=== PATIENT | male | born 1955 | race Caucasian/White ===

== ENCOUNTER 2018-04-16 08:12 | Emergency (ER) | payer MEDICAID, SELFPAY ==
[2018-04-16 08:13] VITALS: BP 158/77; PULSE 58; RESP 16; TEMP 36.6; O2SAT 99; BMI 26.3
--- NOTE | 2018-04-16 08:26 | RAD_ITS ---
STUDY: X-RAY CHEST REASON FOR EXAM: Male, 62 years old. Chest pain, dizziness TECHNIQUE: Single AP portable view of the chest. COMPARISON: None. FINDINGS: Cardiac monitoring leads overlie the chest. The lungs are clear and expanded. There is a vertical linear opacity over the left chest which may be artifact. There is no demonstrated pleural abnormality. Normal size heart. Normal mediastinum and yesi. Normal visualized pulmonary arteries. Normal visualized aortic arch and descending thoracic aorta. Normal visualized thoracic spine. Normal visualized ribs, clavicles, and shoulders. There is no demonstrated abnormality of the visualized soft tissue structures of the upper abdomen. RAD/Chest 1 View (Portable) IMPRESSION: Normal x-ray examination of the chest. Electronically Signed: August Irizarry DO at 9:03 EDT Tel , Service support ,
--- NOTE | 2018-04-16 08:29 | NURSING ---
NO OLD EKGS
--- NOTE | 2018-04-16 08:34 | ED.DCSUM_ITS ---
- ER Visit Summary Date of Service: 04/16/18 Chief Complaint: Chest pain History of Present Illness: The patient is a 62 M with chest pain. The pain started Sunday afternoon after mowing. This was 6 days ago. The pain came on about every 30 minutes. It was over the left side of his chest and it felt sharp. Over the past weekend he had weakness and lightheadedness but no pain. Today he was feeling a little short of breath. He has no history of this. He denies any medical history and takes no medications. Denies any surgeries. Denies any history of heart disease, PE, or aortic disease. Denies fever or infectious symptoms. He has never had any evaluation of his heart including stress test, echo, and catheterization. Is a non-smoker. Physical Examination: Blood pressure 158/77. Otherwise vitals unremarkable. Afebrile. No acute distress. Sitting comfortably. Skin appears normal in color without diaphoresis or pallor. Heart regular rate and rhythm. Lungs clear bilaterally. Extremities nontender. No edema. Pulses 2+ and equal bilaterally. Alert and oriented. Cranial nerves grossly intact. No facial droop. Good strength and sensation grossly. Normal speech. Normal gait. Test Results: EKG shows sinus rhythm at a rate of 61. No sign of acute ischemia or infarct pattern. Chest x-ray and laboratory studies are pending. Emergency Department Course and Treatment: Patient presents with atypical chest pain. It is not classic for ACS, but it is concerning that his symptoms started with exertion. He is 62 years old but overall very healthy and a non- smoker. He is low risk for PE and dissection. There is nothing to suggest infection. He has no history of lung disease. His exam is unremarkable. I did check a basic cardiac workup. I added a d-dimer because of the chest pain with lightheadedness, but otherwise I have low suspicion for dissection. There is nothing to suggest stroke. Chest x-ray and laboratory studies were unremarkable. On reevaluation, the patient is feeling better. No new or worsening symptoms. Patient has a heart score of 2, however his symptoms are concerning. Clinically I felt that he should be admitted for further cardiac testing. Patient declined. He understands that he has not been fully evaluated for chest pain and he would like to follow-up with his doctor for outpatient testing. I advised him to follow-up today. If he has trouble following up or if he has new or worsening symptoms, he should return right away for further evaluation. Patient voiced understanding. Treatment Plan: As above Disposition: Discharge Impression: 1. Chest pain This note was generated with [employer] dictation software. It may contain incorrect words, spelling, and punctuation that were not noted in review of the chart prior to signing ED Disposition - Plan for ED Patient: Disposition: Home or Assisted Living Chief Complaint: Dizziness Instructions: ED Chest Pain Atypical Unkn Cause Referrals: Nimesh England MD [Primary Care Provider] -
[2018-04-16] MEDS: Aspirin 81 MG TAB.CHEW 324 MG PO (08:40)
[2018-04-16 08:45] LABS: Absolute Neutrophil Count 2.9 X10^3/uL (2.0-7.7); Basophil# 0.02 X10^3/uL; Basophil% 0.4 % (0-1); Eosinophil# 0.23 X10^3/uL; Eosinophils% 4.6 % (0-5); Hemoglobin 15.5 g/dl (13.0-16.5); Mean Corp Hgb Conc 35.2 g/gl (32-36); Mean Corpuscular Hgb 30.6 pg (27.0-32.0); Mean Corpuscular Volume 86.8 fL (80-94); Mean Platelet Vol. 8.5 fl (6.2-12.0); Monocyte# 0.45 X10^3/uL; Neutrophil # 2.89 X10^3/uL (2.7-7.7); Neutrophil % 57.8 % (47-70); POSITIVE COUNT NO; POSITIVE DIFFERENTIAL NO; POSITIVE MORPHOLOGY NO; Platelet Count 165 K/mm3 (150-450); RBC Distribution Width CV 12.8 % (11.6-14.6); Red Blood Count 5.07 M/mm3 (4.6-6.2)
[2018-04-16 08:53] LABS: D-Dimer Quantitative (DVT/PE) < 0.27 FEU/ug/m (0.27-0.49)
[2018-04-16 09:01] LABS: Anion Gap 7 (5-15); BUN 18 mg/dL (7-18); BUN/Creat Ratio 16.8 RATIO (10-20); Calcium,Total 8.7 mg/dL (8.5-10.1); Chloride 108 mmol/L (98-107); Creatinine, Serum 1.07 mg/dL (0.70-1.30); EST Glomerular Filtration Rate 74 mL/min (>60); Est Glom Filt Rate - Afr Amer 90 mL/min (>60); Estimated Creatinine Clearance 75.26 ml/min; Glucose 101 mg/dL (74-106); Potassium 3.9 mmol/L (3.5-5.1); Sodium Level 140 mmol/L (136-145)
--- NOTE | 2018-04-16 09:37 | ED.DEP ---
ED Disposition - Plan for ED Patient: Chief Complaint: Dizziness Instructions: ED Chest Pain Atypical Unkn Cause Referrals: Nimesh England MD [Primary Care Provider] -
[2018-04-16 09:39] VITALS: BP 133/89; PULSE 52; RESP 14; O2SAT 96
== END 2018-04-16 09:43 | disposition home or self-care (01) ==
PROVIDERS: Emergency Provider Emergency Medicine; Family Provider Family Medicine; PCP Family Medicine
DX: R07.9 Chest pain, unspecified (principal)
CPT/HCPCS: 71045; 80048; 84484; 85025; 85379; 93005; 99284; A4216

== ENCOUNTER 2019-02-06 19:27 | Emergency (ER) | payer OTHER, SELFPAY ==
[2019-02-06 19:27] VITALS: BP 153/73; PULSE 56; RESP 14; TEMP 36.9; O2SAT 97; BMI 26.6
[2019-02-06] MEDS: predniSONE 20 MG Tablet 60 MG PO (20:47)
--- NOTE | 2019-02-06 20:57 | ED.DCSUM_ITS ---
History of Present Illness Chief Complaint: Neuro S/Sx Informant: Patient Narrative: Right facial droop today after leaving PCP office. States had pain across his right scalp 2 days ago noted a rash this morning. Saw his PCP. Evaluate by 2 doctors there diagnosed with shingles. He is on valacyclovir. Not a diabetic. There is no speech changes or any hemiparesis. No previous similar symptoms. No visual changes. Prior similar symptoms: No Past Medical History - Allergies and Home Meds Allergies/Adverse Reactions: Allergies No Known Allergies Allergy (Verified 02/06/19 19:31) Primary Care Physician: Nimesh England MD [Primary Care Provider] - 5-7 Days Smoking Status: Never smoker Review of Systems General: Denies: Chills, Fever, Sweats Eyes: Denies: Visual changes - bilaterally, Diplopia ENT: Denies: Rhinorrhea, Sore throat Cardiovascular: Denies: Chest pain, Palpitations Respiratory: Denies: Dyspnea, Cough, Dyspnea on exertion Gastrointestinal: Denies: Abdominal pain, Nausea, Vomiting, Diarrhea, Melena, Hematochezia Genitourinary: Denies: Dysuria, Hematuria, Frequency Musculoskeletal: Denies: Back pain, Extremity Pain Skin: Denies: Rash, Wounds Neurological: Denies: Headache, Weakness, Numbness Physical Exam Vital Signs/Narrative: Vital Signs Temp Pulse Resp BP Pulse Ox 02/06/19 19:27 98.4 F 56 L 14 153/73 H 97 Inital Vital Signs reviewed: Yes General: Well nourished, Well developed, No Acute Distress Head: Normocephalic, Atraumatic, - - Rash noted right side of head and scalp, no drainage. There is right-sided facial droop with no frontal sparing. Unable to closed eyes fully. Eyes: Perrl, EOMI ENT: Moist mucous membranes, No rhinorrhea Neck: Supple, Nontender Cardiovascular: Regular rate, Regular rhythm, No murmurs Respiratory: No distress, CTA bilaterally, Chest nontender Abdomen: Soft, Nontender, Nondistended, Normal bowel sounds Back: Nontender, Normal Inspection Extremities: Nontender, No edema Skin: Normal color, No rash Neurological: Alert, Oriented x3, Normal Strength, Normal Sensation, - - Right 7th nerve facial palsy. 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 Likely shingles induced with his diagnosis. Steroids was added to his antivirals. Follow-up with his PCP as scheduled in 1 week. Discussed using eyedrops or taping his right eye closed at night to help from dryness. ED Disposition - Plan for ED Patient: Disposition: Home or Assisted Living Diagnosis: Right-sided Arechiga's palsy Instructions: ED [place] Palsy Prescriptions: Prednisone [Deltasone] 60 mg PO DAILY #18 tablet Referrals: Nimesh England MD [Primary Care Provider] - 5-7 Days Additional Instructions: Take your valacyclovir as prescribed. Start your prednisone tomorrow.
== END 2019-02-06 21:22 | disposition home or self-care (01) ==
PROVIDERS: Emergency Provider Emergency Medicine; Family Provider Family Medicine; PCP Family Medicine
DX: G51.0 Bell's palsy (principal); B02.9 Zoster without complications; Z79.899 Other long term (current) drug therapy
CPT/HCPCS: 99282

== ENCOUNTER 2024-04-18 18:45 | Emergency (ER) | payer MEDICARE, SELFPAY ==
[2024-04-18 18:45] VITALS: BP 170/80; PULSE 57; RESP 14; TEMP 36.6; O2SAT 96; BMI 24.4
--- NOTE | 2024-04-18 20:22 | RAD_ITS ---
INDICATION: constipation EXAMINATION/TECHNIQUE: X-RAY - XR Abdomen 1 View COMPARISON: None FINDINGS: BOWEL GAS PATTERN: Non-obstructive. Extensive colonic fecal retention. FREE AIR: Not assessed on a single supine view. ORGANOMEGALY: Not seen. CALCIFICATIONS: No abnormal calcifications observed. BONES AND SOFT TISSUES: No acute pathology. RAD/Abdomen Single View IMPRESSION: Colonic fecal retention consistent with clinical constipation. Electronically Signed: John Mayen MD at 20:57 EDT ,
[2024-04-18] MEDS: Fleet Enema 133 ML RC (21:07)
--- NOTE | 2024-04-18 21:13 | EDS_ITS ---
HPI HPI - GI History of Present Illness Chief Complaint: Constipation Informant: patient Narrative Narrative: Presents with constipation for 2 weeks. He denies any abdominal pain. He states had a colonoscopy and at the [facility] past September with 11 polypectomies. He typically has daily bowel movements. He has not had any changes in medications he does not take any opiates. He is passing gas. He saw his PCP office 2 days ago was told to be MiraLAX twice a day, told to use mag citrate twice a day for which she took twice yesterday. He states only liquid comes out. Denies nausea or vomiting. Denies fevers or chills. Denies any urinary symptoms. He is also recommended for enemas however he states he could not do this. Prior similar symptoms: No PFSH PFSH Allergy/AdvReac Type Severity Reaction Status Date / Time No Known Allergies Allergy Verified 04/18/24 18:45 Social History Smoking Status: Never smoker ROS ROS ED Constitutional Constitutional ED: Denies chills, fever(s) or sweats Eyes Eyes: Denies change in vision ENT ENT ED: Denies dysphagia or sore throat Cardiovascular Cardiovascular: Denies chest pain, leg edema, palpitations or racing heartbeat Respiratory/Chest Respiratory/Chest: Denies cough, dyspnea or dyspnea on exertion Gastrointestinal Gastrointestinal: Reports constipation; Denies abdominal pain, diarrhea, nausea or vomiting Genitourinary Genitourinary ED: Denies dysuria, hematuria or urinary frequency Musculoskeletal Musculoskeletal: Denies back pain, extremity pain or neck pain Integumentary Denies rash or wounds Neurologic Neurologic: Denies headache(s), paresthesias or weakness EXAM Physical Exam Const Vital Signs: 04/18/24 18:45 Temperature 98 F Temperature Source Temporal Pulse Rate 57 L Respiratory Rate 14 Blood Pressure 170/80 H Blood Pressure Mean 110 Pulse Ox 96 Oxygen Delivery Method Room Air Positive well nourished and well developed General Appearance ED: well developed and NAD HEENT Reports moist mucous membranes normocephalic and atraumatic Eyes EOMs intact bilaterally and conjunctivae normal General Eye ED: Yes normal appearance of both eyes Neck no lymphadenopathy and supple General: Negative for tenderness Chest Wall Chest: Negative for tenderness Resp normal respiratory effort and normal air movement Effort and Inspection: symmetric chest movement; Negative for respiratory distress Cardio regular rate, regular rhythm and no murmurs Peripheral Pulses: pulses 2+ throughout GI normal to inspection, nondistended, normoactive bowel sounds and non-tender GI Narrative: Rectal exam: No hemorrhoids. Digital rectal exam could not palpate any stools in the distal rectum. No masses palpated. Palpation: Negative for guarding or rebound tenderness present Back/Spine no CVA tenderness and no thoracic nor lumbar tenderness Extremity normal to inspection General Extremety ED: Negative for edema or tenderness General Extremity: Negative for edema Neuro oriented x3 and no sensory deficits noted Sensorium / Orientation: awake and alert Skin no rashes or lesions noted and no wounds MDM MDM MDM Narrative Medical decision making narrative: Interventions / MDM: Differential diagnosis: Constipation Diagnosis considered but do not suspect: No clinical diverticulitis. No clinical bowel obstruction My EKG interpretation: N/A Imaging independently reviewed and interpreted by myself: KUB 1 view: Colonic stools more in the descending colon. No impactions noted. External documents reviewed: N/A Test considered but not ordered:N/A ED course: Patient no impaction in the rectum on digital rectal exam. Reported no sick abdominal for 2 weeks. He has a nonsurgical abdomen. No clinical obstructions. He is sent for a KUB. KUB is interpreted by myself with some stool buildup on the distal colon. Per radiology reporting extensive colonic stools however I did not appreciate this. Discussed this with the patient he would like to try an enema before this is ordered. After enema he had a small amount of stools. I did show patient films in the ro om of the area of stools with no extensive buildup. These are more reassured. He uses MiraLAX. Discussed drinking a For every hour tomorrow until he has a bowel movement. He understands a plan. He used his for his bowel prep in September. Re-evaluation: stable Disposition discussed with patient/family/significant other: Patient Case discussed with consulting clinician: N/A This note was generated with [employer] dictation software. It may contain incorrect words, spelling, and punctuation that were not noted in checking the note before signing. Radiography Diagnostic Testing: Clinical Impression(s) from Imaging Studies KUB X-Ray 04/18/24 20:22 IMPRESSION: Colonic fecal retention consistent with clinical constipation. Electronically Signed: John Mayen MD at 20:57 EDT , Discharge Plan Triage Chief Complaint: Constipation ED Provider: Wicho Floyd Dx/Rx/DC Orders Clinical Impression: Constipation, History of colonoscopy with polypectomy Instructions: ED Constipation (Adult) Primary Care Provider: Nimesh England Referrals: Nimesh England MD [Primary Care Provider] - 3-5 Days if not improving Activity Restrictions/Additional Instructions: X-ray reviewed with you in the ED. No extensive stool buildup. Discussed if you want to have bowel movements, take a capful of your MiraLAX 8 ounces of water every hour until you have a bowel movement. Follow-up with your doctors. Print Language: Divehi Disposition Disposition: Home, Self Care Discharge Date/Time: 04/18/24 21:39
== END 2024-04-18 21:39 | disposition home or self-care (01) ==
PROVIDERS: Emergency Provider Emergency Medicine; PCP Family Medicine; Visit Provider Emergency Medicine
DX: K59.00 Constipation, unspecified (principal); Z86.010 Personal history of colon polyps
CPT/HCPCS: 74018; 99282